=== PATIENT | female | born 1940 | race Caucasian/White ===

== ENCOUNTER → 2016-08-16 19:11 | Outpatient (CLI) | payer MEDICARE ==
[2015-05-21 07:07] VITALS: BMI 26.7
[~2016-08-16 19:11] MED LIST: ATENOLOL25 MG; BACTROBAN CREAM15 GM TP; BAYER CHEWABLE81 MG PO; BENTYL10 MG; BLOOD PRESSURE; BYSTOLIC10 MG PO; CLEOCIN HCL150 MG PO; DROXIA200 MG PO; KEFLEX500 MG PO; MULTIPLE VITAMI1 TA1 PO; NORVASC5 MG PO; OMEPRAZOLE40 MG PO; PREDNISONE5 MG PO; PRILOSEC20 MG PO; SAVELLA50 MG PO; SYNTHROID75 MCG PO; ULTRAM50 MG PO
== END | disposition home or self-care (01) ==
LOC: D.MAMMO 16:00
DX: Z12.31 Encounter for screening mammogram for malignant neoplasm of breast (principal)

== ENCOUNTER → 2017-09-06 16:53 | Outpatient (CLI) | payer MEDICARE ==
[2015-05-21 07:07] VITALS: BMI 26.7
== END | disposition home or self-care (01) ==
LOC: D.MAMMO 15:30
DX: Z12.31 Encounter for screening mammogram for malignant neoplasm of breast (principal)

== ENCOUNTER 2018-09-07 19:00 | Outpatient (CLI) | payer OTHER | END 2018-09-07 23:59 | disposition home or self-care (01) | LOC: D.MAMMO 19:00 | DX: Z12.31 Encounter for screening mammogram for malignant neoplasm of breast (principal) ==

== ENCOUNTER 2020-01-17 09:00 | Outpatient (CLI) | payer OTHER ==
[2015-05-21 07:07] VITALS: BMI 26.7
== END 2020-01-17 09:15 | disposition home or self-care (01) ==
LOC: D.MAMMO 09:00
PROVIDERS: ATTEND Family Medicine
DX: Z12.31 Encounter for screening mammogram for malignant neoplasm of breast (principal)